=== PATIENT | female | born 1965 | race Caucasian/White ===

== ENCOUNTER → 2016-08-15 | Outpatient (CLI) | payer MEDICARE ==
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
== END | disposition home or self-care (01) ==
LOC: CMRI 14:27
DX: M54.2 Cervicalgia (principal); M79.601 Pain in right arm; M79.602 Pain in left arm; M54.16 Radiculopathy, lumbar region; R20.0 Anesthesia of skin; M48.06 Spinal stenosis, lumbar region; M47.897 Other spondylosis, lumbosacral region; M25.78 Osteophyte, vertebrae; M51.87 Other intervertebral disc disorders, lumbosacral region
CPT/HCPCS: 72141; 72148